=== PATIENT | female | born 1970 | race Caucasian/White ===

== ENCOUNTER → 2017-04-22 | Outpatient (CLI) | payer OTHER ==
[~2017-04-22] MED LIST: BENADRYL; MUCINEX DM1 TAB.SR .; OXAPROZIN600 MG; PHENERGAN
--- NOTE | ~2017-04-22 | EE ---
Unit #: [id number] #: [id number] Patient: LILLIANA MEDEIROS [id number] [address] [address] [id number] O MR#: [id number] NAME: LILLIANA MEDEIROS. : 1970 SEX: F STUDY DATE/TIME: 04/22/2017 UNIT: CEEG ROOM: STUDY DESCRIPTION: Attending Physician: Roselyn Mantilla M.D. Referring Physician: Roselyn Mantilla M.D. Primary Care Physician: Jonathan Reeves M.D. NEURODIAGNOSTICS REPORT EXAM EEG. TECH Adele. REASON FOR STUDY Seizures. TECHNCIAL INFORMATION This is a routine EEG performed using the standard international 10/20 system electrode placement. Photic stimulation was performed. Hyperventilation was also performed. REPORT Throughout the entire study, the best background rhythm seen is approximately 10 Hz. This rhythm is seen in both posterior head regions symmetrically and does attenuate to eye opening and closure. Hyperventilation was performed which did not elicit any abnormal buildup. Photic stimulation was also performed which failed to reproduce any epileptiform abnormalities; however, there was some frontal and temporal artifact noted. There was a good driving response seen. There was no electrographic seizures recorded during the study nor were there any independent epileptiform abnormalities seen. No sleep was recorded during the EEG. INTERPRETATION This is a normal awake EEG. A normal EEG does not rule out the possibility of seizure disorder. Clinical correlation is advised. Dictated by... Erwin Grace II., M.D. GWS/elena TD: 05/01/2017 16:49 JOB #: [id number] Unit #: [id number] #: [id number] Patient: LILLIANA MEDEIROS NEURODIAGNOSTICS REPORT Page 1 of 1 X NEURODIAGNOSTICS REPORT
--- NOTE | ~2017-04-22 | MR17 ---
[facility] A Service of [facility] & [facility] RADIOLOGY TEXT RESULTS PATIENT: LILLIANA MEDEIROS LOCATION: CEEG : [birth year] UNIT #: [id number] AGE: [address]: ROSELYN PEREZ MD SEX: F ORDER DR: [id number] [facility] [address] [place], [place] [address] [id number] O MR#: [id number] Acc #: [id number] NAME: LILLIANA MEDEIROS : 1970 SEX: F STUDY DATE/TIME: 04/22/2017 10:19 UNIT: CEEG ROOM: STUDY DESCRIPTION: MR Brain WWo Contrast Attending Physician: Roselyn Perez M.D. Referring Physician: Roselyn Perez M.D. Ordering Physician: Roselyn Perez M.D. Primary Care Physician: Jonathan Reeves M.D. MRI CENTER REPORT This report is preliminary unless electronic signature is present. EXAM MRI of the brain with and without contrast, 04/22/2017. COMPARISON None HISTORY Patient had seizures until 2005. They started again in January of this year. She was not on any seizure medications until this year. TECHNIQUE Multisequence, multiplanar imaging of the brain was obtained with and without contrast. 17 mL of MultiHance were administered intravenously. FINDINGS No acute stroke, enhancing intracranial mass, mass effect, midline shift, or hydrocephalus is seen. Post contrast sequences do not demonstrate enhancing lesions. Thin coronal T2 sequences through the hippocampal formations do not demonstrate any significant asymmetry in their shape, size, signal characteristics or bilateral hippocampi. Thick slices through the sella with the pituitary gland, pineal region, and upper cervical spine are unremarkable. S-shaped nasal septal deviation is noted with small nodular mucosal thickening in bilateral maxillary antral floor. They do not appear to enhance in the post-contrast sequences, which are slightly limited in evaluation, due to motion. IMPRESSION 1. No enhancing intracranial mass, mass effect, midline shift, hydrocephalus, or congenital malformations. 2. Small mucous retention cysts in bilateral maxillary antra, benign. 3. No significant congenital malformation or hippocampal abnormalities are seen. Refer above. STS. [facility] A Service of [facility] & [facility] RADIOLOGY TEXT RESULTS PATIENT: LILLIANA MEDEIROS LOCATION: [facility] #: [id number] : [birth year] UNIT #: [id number] AGE: [address]: ROSELYN PEREZ MD SEX: F ORDER DR: Dictated by... Connie Champion M.D. THIS IS AN ELECTRONICALLY VERIFIED REPORT Connie Champion M.D. at 04/23/2017 1:26 PM CPR/js TD: 04/22/2017 19:49 JOB #: [id number] MRI CENTER REPORT Page 1 of 1 COPY
== END | disposition home or self-care (01) ==
LOC: CEEG 04-15 08:00 → CMRI 07:00 → CEEG 08:00
DX: R56.9 Unspecified convulsions (principal); J34.1 Cyst and mucocele of nose and nasal sinus; J34.2 Deviated nasal septum
CPT/HCPCS: 70553; 95816; A9577